=== PATIENT | female | born 1980 | race Caucasian/White ===

== ENCOUNTER 2018-08-09 20:45 | Emergency (ER) | payer OTHER ==
[~2018-08-09 20:45] MED LIST: CEPH-13 PO; FAMO20TA28 PO; HYDR-385 PO; IBUP600T22 PO; LOR5/325 PO
[2018-08-09] MEDS ORDERED: NS(*) 0.9% 1000 ML BAG 1,000 ML IV ONE (20:49)
--- NOTE | 2018-08-09 20:49 | ER Report ---
History and Physical Time Seen By MD: 20:48 HPI/ROS CHIEF COMPLAINT: Vaginal bleeding HISTORY OF PRESENT ILLNESS: 38-year-old female at approximately 8 weeks began to have spontaneous bleeding of some bright blood approximately one hour prior to arrival. She notes no abdominal cramping or back pain. She was seen by Dr. Valiente last week had an ultrasound, noting IUP. REVIEW OF SYSTEMS: Respiratory: No cough, no dyspnea. Cardiovascular: No chest pain, no palpitations. Gastrointestinal: No vomiting, no abdominal pain. Musculoskeletal: No back pain. Allergies: Coded Allergies: Sulfa (Sulfonamide Antibiotics) (Verified Allergy, Unknown, 08/09/18) Home Meds Reported Medications Levothyroxine Sodium (LEVOTHYROXINE SODIUM) 75 Mcg Tablet, 75 MCG PO QDAY, TAB 08/09/18 Discontinued Reported Medications Cephalexin (KEFLEX) 500 Mg Capsule, 500 MG PO TID, #28 CAP TAKE ONE CAPSULE BY MOUTH EVERY SIX HOURS 06/17/13 Ibuprofen (IBUPROFEN) 600 Mg Tablet, 1 TAB PO TID PRN for PAIN, #50 06/17/13 Famotidine (PEPCID) 20 Mg Tablet, 20 MG PO BID, #10 TAB TAKE 1 TABLET BY MOUTH EVERY DAY 06/17/13 Hydrocodone Bit/Acetaminophen (HYDROCODON-ACETAMINOPHEN 5-325) 1 Each Tablet, 1 EACH PO Q4-6H PRN for PAIN, #30 06/17/13 Reviewed Nurses Notes: Yes Old Medical Records Reviewed: Yes Hx Smoking: No Hx Substance Use Disorder: No Hx Alcohol Use: No Constitutional Vital Sign - Last 24 Hours 08/09/18 20:50 Temp 99.0 Pulse 102 Resp 16 B/P (MAP) 145/89 Pulse Ox 95 O2 Delivery Room Air Intake and Output 08/09/18 08/09/18 08/10/18 14:59 22:59 06:59 Intake Total 1000 ml Balance 1000 ml Physical Exam General Appearance: The patient is alert, has no immediate need for airway protection and no current signs of toxicity. Vital signs stable, afebrile, pulse ox normal Eyes: Pupils equal and round no injection. Respiratory: Chest is non tender, lungs are clear to auscultation. Cardiac: regular rate and rhythm Gastrointestinal: Abdomen is soft and non tender, no masses, bowel sounds normal. Musculoskeletal: Neck: Neck is supple and non tender. Extremities have full range of motion and are non tender. Skin: No rashes or lesions. DIFFERENTIAL DIAGNOSIS: After history and physical exam differential diagnosis was considered for vaginal bleeding including but not limited to ectopic , menses, miscarriage, and dysfunctional uterine bleeding. Medical Decision Making Data Points Result Diagram: 08/09/18210108/09/182101 Laboratory Hematology Test 08/09/18 21:02 Red Blood Count 4.97 M/uL (4.17-5.56) Mean Corpuscular Volume 79.4 fL (80.0-96.0) Mean Corpuscular Hemoglobin 26.8 pg (26.0-33.0) Mean Corpuscular Hemoglobin Concent 33.8 g/dL (32.0-36.0) Red Cell Distribution Width 14.2 % (11.5-14.5) Mean Platelet Volume 8.4 fL (7.2-11.1) Neutrophils (%) (Auto) 60.4 % (39.4-72.5) Lymphocytes (%) (Auto) 31.5 % (17.6-49.6) Monocytes (%) (Auto) 5.3 % (4.1-12.4) Eosinophils (%) (Auto) 1.9 % (0.4-6.7) Basophils (%) (Auto) 0.9 % (0.3-1.4) Nucleated RBC Relative Count (auto) 0.1 /100WBC Neutrophils # (Auto) 5.4 K/uL (2.0-7.4) Lymphocytes # (Auto) 2.8 K/uL (1.3-3.6) Monocytes # (Auto) 0.5 K/uL (0.3-1.0) Eosinophils # (Auto) 0.2 K/uL (0.0-0.5) Basophils # (Auto) 0.1 K/uL (0.0-0.1) Nucleated RBC Absolute Count (auto) 0.01 K/uL Prothrombin Time 13.2 seconds (12.0-14.4) Prothromb Time International Ratio 1.00 Activated Partial Thromboplast Time 31 seconds (23-35) Sodium Level 136 mmol/L (137-145) Potassium Level 3.6 mmol/L (3.5-5.0) Chloride Level 103 mmol/L (98-107) Carbon Dioxide Level 20 mmol/L (22-31) Blood Urea Nitrogen 8 mg/dl (7-18) Creatinine 0.50 mg/dl (0.52-1.04) Glomerular Filtration Rate Calc > 60.0 Random Glucose 100 mg/dl (75-110) Calcium Level 9.5 mg/dl (8.4-10.2) Total Bilirubin 0.1 mg/dl (0.2-1.3) Aspartate Amino Transf (AST/SGOT) 16 U/L (0-35) Alanine Aminotransferase (ALT/SGPT) 19 U/L (0-56) Alkaline Phosphatase 46 U/L (0-126) Total Protein 7.1 g/dl (6.3-8.2) Albumin 4.2 g/dl (3.5-5.0) Human Chorionic Gonadotropin, Qual Positive (NEGATIVE) Human Chorionic Gonadotropin, Quant [id number] mIU/ml Chemistry Test 08/09/18 21:02 White Blood Count 9.0 k/uL (4.5-11.0) Red Blood Count 4.97 M/uL (4.17-5.56) Hemoglobin 13.3 g/dL (12.0-16.0) Hematocrit 39.5 % (34.0-47.0) Mean Corpuscular Volume 79.4 fL (80.0-96.0) Mean Corpuscular Hemoglobin 26.8 pg (26.0-33.0) Mean Corpuscular Hemoglobin Concent 33.8 g/dL (32.0-36.0) Red Cell Distribution Width 14.2 % (11.5-14.5) Platelet Count 266 K/uL (150-450) Mean Platelet Volume 8.4 fL (7.2-11.1) Neutrophils (%) (Auto) 60.4 % (39.4-72.5) Lymphocytes (%) (Auto) 31.5 % (17.6-49.6) Monocytes (%) (Auto) 5.3 % (4.1-12.4) Eosinophils (%) (Auto) 1.9 % (0.4-6.7) Basophils (%) (Auto) 0.9 % (0.3-1.4) Nucleated RBC Relative Count (auto) 0.1 /100WBC Neutrophils # (Auto) 5.4 K/uL (2.0-7.4) Lymphocytes # (Auto) 2.8 K/uL (1.3-3.6) Monocytes # (Auto) 0.5 K/uL (0.3-1.0) Eosinophils # (Auto) 0.2 K/uL (0.0-0.5) Basophils # (Auto) 0.1 K/uL (0.0-0.1) Nucleated RBC Absolute Count (auto) 0.01 K/uL Prothrombin Time 13.2 seconds (12.0-14.4) Prothromb Time International Ratio 1.00 Activated Partial Thromboplast Time 31 seconds (23-35) Glomerular Filtration Rate Calc > 60.0 Calcium Level 9.5 mg/dl (8.4-10.2) Total Bilirubin 0.1 mg/dl (0.2-1.3) Aspartate Amino Transf (AST/SGOT) 16 U/L (0-35) Alanine Aminotransferase (ALT/SGPT) 19 U/L (0-56) Alkaline Phosphatase 46 U/L (0-126) Total Protein 7.1 g/dl (6.3-8.2) Albumin 4.2 g/dl (3.5-5.0) Human Chorionic Gonadotropin, Qual Positive (NEGATIVE) Human Chorionic Gonadotropin, Quant 435326 mIU/ml Coagulation Test 08/09/18 21:02 Prothrombin Time 13.2 seconds Prothromb Time International Ratio 1.00 Activated Partial Thromboplast Time 31 seconds EKG/Imaging Imaging Results: Ultrasound of the transvaginal ultrasound was obtained. The results of the study are EXAMINATION: FIRST TRIMESTER TRANSVAGINAL ULTRASOUND WITH DOPPLER DATE: 08/09/2018 8:49 PM INDICATION: Vaginal bleeding, 8 weeks . TECHNIQUE: Transvaginal grayscale, color, and pulsed Doppler examination of the uterus and adnexa was performed. COMPARISON: None. FINDINGS: LMP: 06/13/2018. Estimated gestational age by LMP: 8 weeks 1 day. Estimated date of delivery by LMP: 03/20/2019 The uterus is anteverted and anteflexed. There is a single fetus within a single gestational sac. The crown-rump length of the fetus measures 1.945 cm, consistent with a gestational age of 8 weeks 4 days. The heart rate measures 169 BPM. There is a hypoechoic region along the right aspect of the gestational sac measuring 2.3 x 1.9 x 2.2 cm that likely represents a subchorionic hemorrhage. There may be an additional site of subchorionic hemorrhage along the inferior aspect of the gestational sac measuring 1.7 x 0.5 x 1.4 cm. There are multiple heterogeneous myometrial lesions consistent with leiomyomas. The largest is located at the fundus and measures 5.8 x 3.7 x 3.9 cm. More left anterior fundal subserosal lesion measures 3.7 x 3.7 x 3.5 cm. The mid posterior myometrium lesion measures 2.7 x 3.0 x 2.9 cm. The right ovary measures 2.2 x 1.8 x 1.9 cm and contains physiologic follicles and has venous and arterial waveforms on pulsed Doppler. The left ovary measures 4.6 x 2.8 x 3.5 cm and a probable corpus luteal cyst and has arterial waveforms on pulsed Doppler. There is no free fluid or abnormal adnexal mass in the pelvic cavity. IMPRESSION: 1. Single intrauterine with a crown-rump consistent with gestational age of 8 weeks 4 days, corresponding to the estimated gestational age by LMP of 8 weeks 1 day, with estimated date of delivery by LMP of 03/20/2019. heart rate is 169 BPM. 2. 2 possible subchorionic hemorrhages measuring up to 2.3 cm along the right aspect of the gestational sac and 1.7 cm along the inferior aspect. 3. Multiple uterine leiomyomas. The study was read by the radiologist. I viewed the images myself on the PACS system. ED Course/Re-evaluation Clinical Indication for ER IV: Hydration, IV Access ED Course Patient was admitted to an examination room. H&P was done. The differential diagnoses was considered. On clinical examination. Patient has a benign abdominal examination. She is having vaginal bleeding. She notes that she had ultrasound last week with Dr. Valiente and has an IUP. Patient's treated with IV fluid hydration. Diagnostic evaluation is undertaken with transvaginal ultrasound. Results show 2 subchorionic hemorrhages. Patient's discharged home, advised bed rest and increase fluid intake as well as pelvic rest. She is advised to follow-up with Dr. Valiente next week. She is cautioned return to [facility] ER for heavy bleeding such as saturating 1 pad an hour for 3 hours in a row. 08/09/2018 11:04:[address] Althea Pena DIALYSIS CLINICAL MANAGER on-call. She advises pelvic rest and bed rest. Follow-up with Dr. Valiente this week. Decision to Disposition Date: Aug 09, 2018 Decision to Disposition Time: 23:04 Depart Departure Latest Vital Signs Vital Signs Date Time Temp Pulse Resp B/P (MAP) Pulse Ox O2 Delivery O2 Flow Rate FiO2 08/09/18 20:50 99.0 102 16 145/89 95 Room Air Impression: Primary Impression: Threatened miscarriage Additional Impression: Subchorionic hemorrhage Condition: Improved Disposition: HOME OR SELF-CARE Patient Instructions: Threatened Miscarriage (ED) Additional Instructions: Pelvic rest, bed rest as much as possible Increase fluid intake Follow-up with DIALYSIS CLINICAL MANAGER. Dr. Valiente early this week Problem Qualifiers Additional Impression: Subchorionic hemorrhage Fetus number: single or unspecified fetus Trimester: first trimester Qualified Codes: O41.8X10 - Other specified disorders of amniotic fluid and membranes, first trimester, not applicable or unspecified; O46.8X1 - Other antepartum hemorrhage, first trimester LYLE RAINES DO Aug 09, 2018 20:48
[2018-08-09 20:50] VITALS: BP 145/89
[2018-08-09] MEDS ORDERED: LEVO75TA73 PO (20:54)
[2018-08-09 21:19] LABS: PLATELET COUNT, AUTOMATED 266 K/uL (150-450)
--- NOTE | 2018-08-09 22:57 | RADIOLOGY IMAGING REPORT ---
FACILITY: [facility] - [place] PATIENT NAME: Lamar Real : 1980 MR: [id number] V: [id number] EXAM DATE: ORDERING PHYSICIAN: LYLE RAINES TECHNOLOGIST: Location: [facility] - [place] Patient: Lamar Real : 1980 Visit/Account:[id number] Date of Sevice: 08/09/2018 EXAMINATION: FIRST TRIMESTER TRANSVAGINAL ULTRASOUND WITH DOPPLER DATE: 08/09/2018 8:49 PM INDICATION: Vaginal bleeding, 8 weeks . TECHNIQUE: Transvaginal grayscale, color, and pulsed Doppler examination of the uterus and adnexa was performed. COMPARISON: None. FINDINGS: LMP: 06/13/2018. Estimated gestational age by LMP: 8 weeks 1 day. Estimated date of delivery by LMP: 03/20/2019 The uterus is anteverted and anteflexed. There is a single fetus within a single gestational sac. The crown-rump length of the fetus measures 1.945 cm, consistent with a gestational age of 8 weeks 4 day s. The heart rate measures 169 BPM. There is a hypoechoic region along the right aspect of the gestational sac measuring 2.3 x 1.9 x 2.2 cm that likely represents a subchorionic hemorrhage. Ther e may be an additional site of subchorionic hemorrhage along the inferior aspect of the gestational s ac measuring 1.7 x 0.5 x 1.4 cm. There are multiple heterogeneous myometrial lesions consistent with leiomyomas. The largest is locat ed at the fundus and measures 5.8 x 3.7 x 3.9 cm. More left anterior fundal subserosal lesion measur es 3.7 x 3.7 x 3.5 cm. The mid posterior myometrium lesion measures 2.7 x 3.0 x 2.9 cm. The right ovary measures 2.2 x 1.8 x 1.9 cm and contains physiologic follicles and has venous and art erial waveforms on pulsed Doppler. The left ovary measures 4.6 x 2.8 x 3.5 cm and a probable corpus l uteal cyst and has arterial waveforms on pulsed Doppler. There is no free fluid or abnormal adnexal mass in the pelvic cavity. IMPRESSION: 1. Single intrauterine with a crown-rump consistent with gestational age of 8 weeks 4 days , corresponding to the estimated gestational age by LMP of 8 weeks 1 day, with estimated date of deli very by LMP of 03/20/2019. heart rate is 169 BPM. 2. 2 possible subchorionic hemorrhages measuring up to 2.3 cm along the right aspect of the gestatio nal sac and 1.7 cm along the inferior aspect. 3. Multiple uterine leiomyomas. Report Dictated By: Carlos Enrique Al MD at 08/09/2018 10:46 PM Report E-Signed By: Carlos Enrique Al MD at 08/09/2018 10:55 PM [id number]
== END 2018-08-09 23:11 | disposition home or self-care (01) ==
LOC: ER 20:49
DX: O41.8X10 Other specified disorders of amniotic fluid and membranes, first trimester, not applicable or unspecified (principal); O46.8X1 Other antepartum hemorrhage, first trimester
CPT/HCPCS: 76817; 84702; 84703; 85025; 85610; 85730; 86850; 86900; 86901; 96360; 99284; J7030; 82040; 82247; 82310; 82374; 82435; 82565; 82947; 84075; 84132; 84155; 84295; 84450; 84460; 84520